=== PATIENT | female | born 1975 | race Caucasian/White ===

== ENCOUNTER 2017-06-25 11:41 | Emergency (ER) | payer OTHER ==
[~2017-06-25] VITALS: Ht 157.5 cm; Wt 79.4 kg
[~2017-06-25 11:41] MED LIST: ACET325 PO; ALBIPROI; ALBU.083IS IH; ALBU3IS; ALBU90OI; ALBU90OI INH; ALBU90OI6 INH; ALBU90OI61 INH; ALPR1; AMIT10 PO; AMOCLA875 PO; AMOX500 PO; ARIP10; ATOR10 PO; AZIT250 PO; Ativan1 MG PO; BECLOI16.8 IH; Budeprion Sr150 MG; CALCAVITD PO; CARI350; CARI350 PO; CEPH500 PO; CHOL10002; CIPR500 PO; CLON1; CLON1 PO; CLON2; CLON2 PO; CODBUTACEC; CODBUTASA PO; CODGUAEL PO; CYCL10; CYCL10 PO; CYMBALTA 60 MG; Crutch1 EACH MISC; DIAZ5 PO; DIPATR; DIPATR PO; DOXY100; DOXY100 PO; DULO30; DULO30 PO; DULO60; DULO60 PO; ELMIRON; ESCI20; ESOM20 PO; ESTR1; ESTR1 PO; ESTR2 PO; FAMO20 PO; FISH1000 PO; FLUSAL2505; FLUSAL5005; FLUSAL5005 IH; GABA300; GEMF600; GEMF600 PO; GUAPHELA PO; HYDACE10B; HYDACE10B PO; HYDACE5 PO; HYDGUAL120; HYDGUAL120 PO; HYDPAM50; IBUP200 PO; IBUP400 PO; IBUP600 PO; IBUP800; IBUP800 PO; LEVFLO500 PO; LIDO2TG30 TOP; LORA1 PO; LORA10ER PO; LOXA10; MEDICAL MARIJUANA; META800 PO; METCAR500 PO; MONT10T; MONT4; MULVITMIND PO; Macrobid 100 M100 MG PO; NAPR375 PO; NAPR500 PO; NITR100CA PO; Naprosyn375 MG PO; OLAN10; OLAN10A; OMEP10ER PO; OMEP20ER PO; ONDA4 PO; OPIBELS PR; OXYACE10; OXYACE10 PO; OXYACE5T; OXYACE5T PO; OXYB5 PO; OXYC10ER; OXYC5; OXYC5 PO; PANT20 PO; PENVK250 PO; PHENA100 PO; PHENA200 PO; PRED10; PRED10 PO; PRED20 PO; PROACE100 PO; PROC10; PROC10 PO; PROC25S PR; PROC5 PO; PROM25 PO; PSEU120ER PO; Pravastatin Sod80 MG PO; Pyridium200 MG PO; QUET200; RANI150 PO; RXDIPATR PO; RXHYDACE PO; RXLORA1 PO; RXOXYACE PO; RXPENVK250 PO; RXPHEN200 PO; RXPROM25S PR; RXSULTRIDS PO; SIMV40 PO; SIMV5 PO; SOLI5 PO; SULTRIDS PO; SULTRISS; TIZA4; TIZA4 PO; TRAM50 PO; TRAZ100; TRIM200S; ZOLP10 PO; [UNRECOGNIZED DRUG - REMARK]
[2017-06-25] MEDS ORDERED: NAPR220 PO (12:28)
[2017-06-25] MEDS ORDERED: CYCL10 PO (12:28)
[2017-06-25] MEDS ORDERED: Prednisone20 MG PO (13:27)
== END 2017-06-25 13:33 | disposition home or self-care (01) ==
LOC: ER 11:41
DX: J40 Bronchitis, not specified as acute or chronic (principal); Z88.0 Allergy status to penicillin; Z88.8 Allergy status to other drugs, medicaments and biological substances; Z88.2 Allergy status to sulfonamides; Z79.899 Other long term (current) drug therapy; J45.909 Unspecified asthma, uncomplicated; G40.909 Epilepsy, unspecified, not intractable, without status epilepticus; F17.210 Nicotine dependence, cigarettes, uncomplicated; Z87.01 Personal history of pneumonia (recurrent)
CPT/HCPCS: 71046; 94640; 99283

== ENCOUNTER 2017-07-13 19:34 | Emergency (ER) | payer OTHER ==
[~2017-07-13] VITALS: Ht 157.5 cm; Wt 79.4 kg
[~2017-07-13 19:34] MED LIST changes: +NAPR220 PO; +Prednisone20 MG PO
[2017-07-13 20:23] LABS: Influenza A Negative (NEGATIVE); Influenza B Negative (NEGATIVE)
[2017-07-13] MEDS ORDERED: BENZ100A PO (20:42)
[2017-07-13] MEDS ORDERED: PSEU120ER PO (20:42)
== END 2017-07-13 20:49 | disposition home or self-care (01) ==
LOC: ER 19:34
PROVIDERS: Physician Assistant
DX: J98.9 Respiratory disorder, unspecified (principal); B97.89 Other viral agents as the cause of diseases classified elsewhere; J44.9 Chronic obstructive pulmonary disease, unspecified; F17.210 Nicotine dependence, cigarettes, uncomplicated; Z88.8 Allergy status to other drugs, medicaments and biological substances; Z88.0 Allergy status to penicillin; Z88.2 Allergy status to sulfonamides; Z79.899 Other long term (current) drug therapy
CPT/HCPCS: 87804; 99283